=== PATIENT | male | born 1970 | race Caucasian/White ===

== ENCOUNTER 2018-09-23 11:01 | Day surgery (SDC) | payer MEDICAID ==
[~2018-09-23] VITALS: Ht 177.8 cm; Wt 89.0 kg
[2018-09-23] MEDS ORDERED: normal saline 1000ml 1,000 ML IV PRN (11:20)
[2018-09-23] MEDS ORDERED: CefTRIAXone/D5W-Rocephin 1gm 50 ML IV ONE (11:20)
[2018-09-23 11:44] VITALS: BP 109/77
[2018-09-23] MEDS ORDERED: fentaNYL/PF 50MCG/1 ML 2ML syringe IV PRN (12:20)
[2018-09-23] MEDS ORDERED: midazolam 2 mg/2 ml injection IV PRN (12:20)
[2018-09-23] MEDS ORDERED: LIDOcaine 1%/PF 5ML 10 MG/ML VIAL ONE (12:22)
[2018-09-23] MEDS ORDERED: MORP15TA PO (12:26)
[2018-09-23] MEDS ORDERED: METOPROLOL PO (12:26)
[2018-09-23] MEDS ORDERED: HYDR-3965 PO (12:26)
[2018-09-23] MEDS ORDERED: ALB0.5UD IH (12:26)
[2018-09-23] MEDS ORDERED: CITA20TA28 PO (12:26)
[2018-09-23] MEDS ORDERED: LISINAPRIL PO (12:26)
[2018-09-23] MEDS ORDERED: METH1TAB32 PO (12:26)
[2018-09-23] MEDS ORDERED: SIMV20TA5 PO (12:26)
[2018-09-23] MEDS ORDERED: iohexol 300 MG/1 ML 50ml polymer ONE (12:39)
[2018-09-23] MEDS ORDERED: midazolam 2 mg/2 ml injection ONE (12:44)
[2018-09-23] MEDS ORDERED: fentaNYL/PF 50MCG/1 ML 2ML syringe ONE ×2 (12:45→12:57)
[2018-09-23 13:31] VITALS: BP 113/67
[2018-09-23 13:45] VITALS: BP 110/68
[2018-09-23 14:00] VITALS: BP 110/53
[2018-09-23 14:15] VITALS: BP 98/65
== END 2018-09-23 14:35 | disposition home or self-care (01) ==
LOC: SSTAY O 11:01
PROVIDERS: ATTEND Radiology Diagnostic Radiology
DX: Z46.82 Encounter for fitting and adjustment of non-vascular catheter (principal); F51.02 Adjustment insomnia; D64.9 Anemia, unspecified; F41.9 Anxiety disorder, unspecified; F32.9 Major depressive disorder, single episode, unspecified; F11.20 Opioid dependence, uncomplicated; I12.9 Hypertensive chronic kidney disease with stage 1 through stage 4 chronic kidney disease, or unspecified chronic kidney disease; N18.9 Chronic kidney disease, unspecified; E78.00 Pure hypercholesterolemia, unspecified; E55.9 Vitamin D deficiency, unspecified; E66.3 Overweight; Z68.36 Body mass index [BMI] 36.0-36.9, adult; Z87.440 Personal history of urinary (tract) infections; Z98.890 Other specified postprocedural states; Z88.8 Allergy status to other drugs, medicaments and biological substances; Z87.891 Personal history of nicotine dependence; Z72.89 Other problems related to lifestyle; Z82.49 Family history of ischemic heart disease and other diseases of the circulatory system
CPT/HCPCS: 50435; 99152; 99153; C1769; J0696; J2250; J3010; J7030; Q9967

== ENCOUNTER 2018-12-19 06:06 | Day surgery (SDC) | payer MEDICAID ==
[~2018-12-19] VITALS: Ht 177.8 cm; Wt 92.6 kg
[~2018-12-19 06:06] MED LIST: ALB0.5UD IH; CITA20TA28 PO; HYDR-3965 PO; LISINAPRIL PO; METH1TAB32 PO; METOPROLOL PO; MORP15TA PO; SIMV-42 PO
[2018-12-19 06:25] VITALS: BP 130/80
[2018-12-19] MEDS ORDERED: normal saline 1000ml 1,000 ML IV SCH (06:35)
[2018-12-19] MEDS ORDERED: MORP30CA17 PO (07:02)
[2018-12-19] MEDS ORDERED: HYDR-3972 PO (07:02)
[2018-12-19] MEDS ORDERED: fentaNYL/PF 50MCG/1 ML 2ML syringe IV PRN (08:20)
[2018-12-19] MEDS ORDERED: midazolam 2 mg/2 ml injection IV PRN (08:20)
[2018-12-19] MEDS ORDERED: LIDOcaine 1%/PF 5ML 10 MG/ML VIAL SQ ONE (08:20)
[2018-12-19] MEDS ORDERED: CefTRIAXone/D5W-Rocephin 1gm 50 ML IV SCH (08:20)
[2018-12-19] MEDS ORDERED: iohexol 300 MG/1 ML 50ml polymer ONE (08:31)
[2018-12-19] MEDS ORDERED: LIDOcaine 1%/PF 5ML 10 MG/ML VIAL ONE (08:31)
[2018-12-19] MEDS ORDERED: fentaNYL/PF 50MCG/1 ML 2ML syringe ONE (08:51)
[2018-12-19] MEDS ORDERED: midazolam 2 mg/2 ml injection ONE (08:51)
[2018-12-19 09:30] VITALS: BP 114/77
[2018-12-19 09:45] VITALS: BP 122/82
== END 2018-12-19 09:45 | disposition home or self-care (01) ==
LOC: SSTAY O 06:06
PROVIDERS: ATTEND Radiology Vascular & Interventional Radiology
DX: Z46.6 Encounter for fitting and adjustment of urinary device (principal); N13.30 Unspecified hydronephrosis; Z79.899 Other long term (current) drug therapy
CPT/HCPCS: 50435; 99152; J0696; J2250; J3010; Q9967; C1729; C1769; J7030